=== PATIENT | female | born 1935 | race Caucasian/White ===

== ENCOUNTER 2018-10-10 07:39 | Day surgery (SDC) | payer MEDICARE ==
[2018-10-10] VITALS (11 sets, daily range): BP systolic 96–125; BP diastolic 48–73
[~2018-10-10] VITALS: Ht 157.5 cm; Wt 65.5 kg
[2018-10-10] MEDS ORDERED: LIDOcaine 1% (10mg/ml)w/preservative injection 20ml MDV ONE (07:43)
[2018-10-10] MEDS ORDERED: fentaNYL/PF 50MCG/1 ML 2ML syringe ONE (07:43)
[2018-10-10] MEDS ORDERED: iohexol 350 MG/ML 50ML vial IV ONE (07:43)
[2018-10-10] MEDS ORDERED: iohexol 350MG/ML 100ml bottle IV ONE ×2 (07:43→09:36)
[2018-10-10] MEDS ORDERED: midazolam 2 mg/2 ml injection ONE ×3 (07:43→10:05)
[2018-10-10] MEDS ORDERED: normal saline 1,000 ML IV SCH (08:10)
[2018-10-10] MEDS ORDERED: diphenhydrAMINE 25mg capsule PO PRN (08:10)
[2018-10-10] MEDS ORDERED: ATOR80TA PO (08:11)
[2018-10-10] MEDS ORDERED: ATEN25TA PO (08:11)
[2018-10-10] MEDS ORDERED: MULT-1085 PO (08:11)
[2018-10-10] MEDS ORDERED: CLOP75TA15 PO (08:11)
[2018-10-10] MEDS ORDERED: vitamin D (08:11)
[2018-10-10 08:34] LABS: BASOPHILS # (AUTO) 0.1 X10'3 (0-0.2); BASOPHILS % (AUTO) 0.9 % (0-1); EOSINOPHILS % (AUTO) 0.6 % (0-6); HEMATOCRIT 41.5 % (35.0-45.0); HEMOGLOBIN 14.1 g/dl (12.0-16.0); LYMPHOCYTES # (AUTO) 2.3 X10'3 (1.1-4.8); LYMPHOCYTES % (AUTO) 34.5 % (21-51); MEAN CORPUSCULAR HEMOGLOBIN 31.7 PG (27.0-31.0); MEAN CORPUSCULAR VOLUME 93.5 FL (78-98); MONOCYTES # (AUTO) 0.7 X10'3 (0-0.9); MONOCYTES % (AUTO) 9.7 % (2-12); NEUTROPHILS # (AUTO) 3.7 X10'3 (1.8-7.7); NEUTROPHILS % (AUTO) 54.3 % (42-75); PLATELET COUNT 154 X10'3 (140-440); RED BLOOD COUNT 4.44 X10'6 (4.20-5.60); RED CELL DISTRIBUTION WIDTH 12.8 % (11.5-14.5); WHITE BLOOD COUNT 6.8 X10'3 (4.5-11.0)
[2018-10-10 08:36] LABS: ALBUMIN 4.4 G/DL (3.4-5.0); ANION GAP 8 (8-16); BLOOD UREA NITROGEN 19 MG/DL (7-18); BUN/CREATININE RATIO 21.6 (6.6-38.0); CALCIUM 9.3 MG/DL (8.5-10.1); CHLORIDE 108 MMOL/L (99-107); CREATININE 0.88 MG/DL (0.40-0.90); GLUCOSE 106 MG/DL (70-104); SODIUM 143 MMOL/L (135-145); TOTAL CARBON DIOXIDE 27.4 MMOL/L (24-32); eGFR 62 ML/MIN
[2018-10-10 08:39] LABS: POTASSIUM 4.2 MMOL/L (3.5-5.1)
[2018-10-10 08:40] LABS: INR 1.1 INR; PROTHROMBIN TIME 11.1 SECONDS (9.0-12.0)
[2018-10-10] MEDS ORDERED: heparin 1,000unit/ml 10ml vial 10 ML ONE (09:36)
[2018-10-10] MEDS ORDERED: clopidogrel 300mg tablet ONE (10:23)
== END 2018-10-10 14:50 | disposition home or self-care (01) ==
LOC: SSTAY O 07:39
PROVIDERS: ATTEND Internal Medicine Cardiovascular Disease
DX: I25.10 Atherosclerotic heart disease of native coronary artery without angina pectoris (principal); I27.20 Pulmonary hypertension, unspecified; E78.5 Hyperlipidemia, unspecified; I10 Essential (primary) hypertension
CPT/HCPCS: 36415; 80048; 83735; 85025; 85610; 93460; 99152; 99153; A6257; C1874; C9600; J1644; J2001; J2250; J3010; J7030; Q0163; Q9967; A4620; C1760; C1769; C1894; C9601

== ENCOUNTER 2019-12-09 09:53 | Day surgery (SDC) | payer MEDICARE ==
[~2019-12-09] VITALS: Ht 157.5 cm; Wt 64.8 kg
[2019-12-09] VITALS (9 sets, daily range): BP systolic 130–145; BP diastolic 65–91
[~2019-12-09 09:53] MED LIST: ATEN25TA PO; ATOR80TA PO; CLOP75TA15 PO; MULT-1085 PO; vitamin D
[2019-12-09] MEDS ORDERED: normal saline 1,000 ML IV SCH (10:10)
[2019-12-09] MEDS ORDERED: diphenhydrAMINE 25mg capsule PO PRN (10:10)
[2019-12-09] MEDS ORDERED: iohexol 350MG/ML 100ml bottle IV ONE (11:07)
[2019-12-09] MEDS ORDERED: fentaNYL/PF 50MCG/1 ML 2ML syringe ONE (11:07)
[2019-12-09] MEDS ORDERED: iohexol 350 MG/ML 50ML vial IV ONE (11:07)
[2019-12-09] MEDS ORDERED: heparin 1,000unit/ml 10ml vial 10 ML ONE (11:07)
[2019-12-09] MEDS ORDERED: LIDOcaine 1% (10mg/ml)w/preservative injection 20ml MDV ONE (11:07)
[2019-12-09] MEDS ORDERED: midazolam 2 mg/2 ml injection ONE (11:07)
[2019-12-09 11:12] LABS: BASOPHILS % (AUTO) 0.6 % (0-1); EOSINOPHILS # (AUTO) 0.1 X10'3 (0-0.9); HEMATOCRIT 39.6 % (35.0-45.0); HEMOGLOBIN 13.2 g/dl (12.0-16.0); LYMPHOCYTES # (AUTO) 2.2 X10'3 (1.1-4.8); LYMPHOCYTES % (AUTO) 36.9 % (21-51); MEAN CORPUSCULAR HEMOGLOBIN 31.5 PG (27.0-31.0); MEAN CORPUSCULAR HGB CONC 33.4 g/dL (33.0-36.5); MEAN CORPUSCULAR VOLUME 94.4 FL (78-98); MEAN PLATELET VOLUME 7.1 FL (7.4-10.4); MONOCYTES # (AUTO) 0.6 X10'3 (0-0.9); MONOCYTES % (AUTO) 10.3 % (2-12); NEUTROPHILS % (AUTO) 51.2 % (42-75); PLATELET COUNT 166 X10'3 (140-440); RED BLOOD COUNT 4.19 X10'6 (4.20-5.60); RED CELL DISTRIBUTION WIDTH 13.1 % (11.5-14.5); WHITE BLOOD COUNT 5.9 X10'3 (4.5-11.0)
[2019-12-09 11:17] LABS: ALBUMIN 4.2 G/DL (3.4-5.0); ANION GAP 8 (8-16); BLOOD UREA NITROGEN 17 MG/DL (7-18); BUN/CREATININE RATIO 17.9 (6.6-38.0); CALCIUM 9.2 MG/DL (8.5-10.1); CHLORIDE 111 MMOL/L (99-107); CREATININE 0.95 MG/DL (0.40-0.90); GLUCOSE 101 MG/DL (70-104); MAGNESIUM 2.2 MG/DL (1.5-2.4); POTASSIUM 3.7 MMOL/L (3.5-5.1); SODIUM 147 MMOL/L (135-145); TOTAL CARBON DIOXIDE 27.7 MMOL/L (24-32); eGFR 56 ML/MIN
[2019-12-09] MEDS ORDERED: ondansetron/PF 4mg/2ml inj IV PRN (12:30)
[2019-12-09] MEDS ORDERED: HYDROcodone/acetaminophen 5mg/325mg tablet PO PRN (12:30)
[2019-12-09] MEDS ORDERED: proCHLORperazine 10 MG/2 ml inj IV PRN (12:35)
[2019-12-09] MEDS ORDERED: HYDROcodone/acetaminophen 10/325mg tab PO PRN (12:35)
== END 2019-12-09 15:30 | disposition home or self-care (01) ==
LOC: SSTAY O 09:53
PROVIDERS: ATTEND Internal Medicine Cardiovascular Disease
DX: R94.39 Abnormal result of other cardiovascular function study (principal); I25.118 Atherosclerotic heart disease of native coronary artery with other forms of angina pectoris; I10 Essential (primary) hypertension; E78.5 Hyperlipidemia, unspecified; M81.0 Age-related osteoporosis without current pathological fracture; Z87.891 Personal history of nicotine dependence; Z95.5 Presence of coronary angioplasty implant and graft; Z90.710 Acquired absence of both cervix and uterus; Z98.890 Other specified postprocedural states; Z79.01 Long term (current) use of anticoagulants; Z79.899 Other long term (current) drug therapy
CPT/HCPCS: 36415; 80048; 83735; 85025; 85610; 93005; 93460; 99152; 99153; C1769; C1894; J1644; J2001; J2250; J3010; Q0163; Q9967; A4620; A6258; C1760

== ENCOUNTER → 2024-04-28 | Emergency (ER) | payer MEDICARE ==
[~2024-04-28] VITALS: Ht 157.5 cm; Wt 55.0 kg
[~2024-04-28] MED LIST changes: +NITR1PAT25 TD
[2024-04-28 14:51] LABS: BASOPHILS % (AUTO) 0.6 % (0-1); EOSINOPHILS # (AUTO) 0.1 X10'3 (0-0.9); EOSINOPHILS % (AUTO) 1.2 % (0-6); HEMATOCRIT 42.5 % (35.0-45.0); HEMOGLOBIN 14.2 g/dl (12.0-16.0); LYMPHOCYTES # (AUTO) 1.5 X10'3 (1.1-4.8); LYMPHOCYTES % (AUTO) 19.3 % (21-51); MEAN CORPUSCULAR HEMOGLOBIN 32.3 PG (27.0-31.0); MEAN CORPUSCULAR HGB CONC 33.4 g/dL (33.0-36.5); MEAN CORPUSCULAR VOLUME 96.6 FL (78-98); MEAN PLATELET VOLUME 7.7 FL (7.4-10.4); MONOCYTES % (AUTO) 12.8 % (2-12); NEUTROPHILS # (AUTO) 5.1 X10'3 (1.8-7.7); NEUTROPHILS % (AUTO) 66.1 % (42-75); PLATELET COUNT 167 X10'3 (140-440); RED CELL DISTRIBUTION WIDTH 13.6 % (11.5-14.5); WHITE BLOOD COUNT 7.7 X10'3 (4.5-11.0)
[2024-04-28 15:04] LABS: ALANINE AMINOTRANSFERASE 39 U/L (12-78); ALBUMIN 3.7 G/DL (3.4-5.0); ALBUMIN/GLOBULIN RATIO 1.2 (1.1-1.5); ALKALINE PHOSPHATASE 109 IU/L (46-116); ANION GAP 6 (8-16); ASPARTATE AMINO TRANSFERASE 36 U/L (10-37); BILIRUBIN,TOTAL 0.7 MG/DL (0.1-1.0); BLOOD UREA NITROGEN 25 MG/DL (7-18); CALCIUM 9.1 MG/DL (8.5-10.1); CHLORIDE 104 MMOL/L (99-107); GLUCOSE 147 MG/DL (70-104); POTASSIUM 4.2 MMOL/L (3.5-5.1); SODIUM 140 MMOL/L (135-145); TOTAL CARBON DIOXIDE 29.8 MMOL/L (24-32); TOTAL PROTEIN 6.7 G/DL (6.4-8.2); eCRCL 31 ML/MIN; eGFR 52 ML/MIN
[2024-04-28 15:12] LABS: PRO BRAIN NATRIURETIC PEPTIDE 3020 PG/ML (0-450)
[2024-04-28 17:28] VITALS: BP 122/82; PULSE 85; RESP 19; TEMP 98.9; O2SAT 99
== END | disposition home or self-care (01) ==
LOC: ER 14:25
DX: I95.9 Hypotension, unspecified (principal); Z88.0 Allergy status to penicillin; Z88.2 Allergy status to sulfonamides; Z79.899 Other long term (current) drug therapy; Z95.2 Presence of prosthetic heart valve
CPT/HCPCS: 36415; 71045; 80053; 83880; 84484; 85025; 93005; 99285

== ENCOUNTER 2024-10-09 07:22 | Emergency (ER) | payer MEDICARE ==
[~2024-10-09] VITALS: Ht 157.5 cm; Wt 59.6 kg
[~2024-10-09 07:22] MED LIST changes: +ATOR-429 PO; -ATOR80TA PO; +CEPH-585 PO; -NITR1PAT25 TD
[2024-10-09 08:00] LABS: BASOPHILS % (AUTO) 0.6 % (0-1); EOSINOPHILS # (AUTO) 0.1 X10'3 (0-0.9); EOSINOPHILS % (AUTO) 1.7 % (0-6); HEMATOCRIT 42.8 % (35.0-45.0); HEMOGLOBIN 14.2 g/dl (12.0-16.0); LYMPHOCYTES # (AUTO) 1.6 X10'3 (1.1-4.8); LYMPHOCYTES % (AUTO) 30.8 % (21-51); MEAN CORPUSCULAR HEMOGLOBIN 30.8 PG (27.0-31.0); MEAN CORPUSCULAR HGB CONC 33.3 g/dL (33.0-36.5); MEAN CORPUSCULAR VOLUME 92.6 FL (78-98); MEAN PLATELET VOLUME 7.8 FL (7.4-10.4); MONOCYTES # (AUTO) 0.7 X10'3 (0-0.9); MONOCYTES % (AUTO) 12.9 % (2-12); NEUTROPHILS # (AUTO) 2.8 X10'3 (1.8-7.7); PLATELET COUNT 126 X10'3 (140-440); RED BLOOD COUNT 4.62 X10'6 (4.20-5.60); RED CELL DISTRIBUTION WIDTH 14.3 % (11.5-14.5); WHITE BLOOD COUNT 5.2 X10'3 (4.5-11.0)
[2024-10-09 08:26] LABS: ALANINE AMINOTRANSFERASE 51 U/L (12-78); ALBUMIN/GLOBULIN RATIO 1.5 (1.1-1.5); ALKALINE PHOSPHATASE 83 IU/L (46-116); ANION GAP 9 (8-16); ASPARTATE AMINO TRANSFERASE 37 U/L (10-37); BILIRUBIN,TOTAL 0.6 MG/DL (0.1-1.0); BLOOD UREA NITROGEN 20 MG/DL (7-18); CHLORIDE 104 MMOL/L (99-107); CREATININE 0.74 MG/DL (0.40-0.90); GLUCOSE 113 MG/DL (70-104); POTASSIUM 3.6 MMOL/L (3.5-5.1); PRO BRAIN NATRIURETIC PEPTIDE 212 PG/ML (0-450); SODIUM 142 MMOL/L (135-145); TOTAL CARBON DIOXIDE 29.2 MMOL/L (24-32); TOTAL PROTEIN 6.6 G/DL (6.4-8.2); eCRCL 42 ML/MIN; eGFR 74 ML/MIN
[2024-10-09 08:53] VITALS: TEMP 97.6
[2024-10-09] MEDS ORDERED: iohexol 300mg/ml 100ml inj. ONE (09:24)
[2024-10-09 11:07] LABS: BILIRUBIN,URINE NEGATIVE (Neg); CLARITY,URINE CLEAR (Clear); COLOR,URINE STRAW (Yellow); GLUCOSE, URINE NEGATIVE (Neg); KETONES,URINE NEGATIVE (Neg); LEUKOCYTE ESTERASE ,URINE NEGATIVE (Neg); NITRITES, URINE NEGATIVE (Neg); OCCULT BLOOD,URINE NEGATIVE (Neg); PROTEIN,URINE NEGATIVE (Neg); UROBILINOGEN,URINE 0.2 E.U/dL (0.2-1.0)
[2024-10-09 11:09] LABS: UA COLLECTION TYPE CLN CATCH MIDSTREAM
[2024-10-09] MEDS ORDERED: CEFD300C3 PO (12:43)
[2024-10-09] MEDS ORDERED: METR-159 PO (12:43)
[2024-10-09 13:22] VITALS: BP 151/72; PULSE 84; RESP 16; O2SAT 99
== END 2024-10-09 13:26 | disposition home or self-care (01) ==
LOC: ER 07:23
DX: R10.31 Right lower quadrant pain (principal); I25.10 Atherosclerotic heart disease of native coronary artery without angina pectoris; Z88.0 Allergy status to penicillin; Z88.2 Allergy status to sulfonamides; Z88.6 Allergy status to analgesic agent; Z95.5 Presence of coronary angioplasty implant and graft
CPT/HCPCS: 36415; 71045; 74177; 80053; 81003; 83690; 83880; 84484; 85025; 93005; 99285; Q9967

== ENCOUNTER 2024-11-05 00:26 | Inpatient (IN) | payer MEDICARE ==
[~2024-11-05] VITALS: Ht 157.5 cm; Wt 63.0 kg
[2024-11-05] VITALS (15 sets, daily range): BP systolic 90–156; BP diastolic 50–90; PULSE 52–101; RESP 12–22; TEMP 97.1–98.2; O2SAT 86–100
--- NOTE | 2024-11-05 00:42 | Physician Documentation ---
History of Present Illness ~ Chief Complaint: Chest Pain Stated Complaint: CHEST PAIN Time Seen by MD: 00:39 Primary Medical Doctor: ALISSON NEELY - GP HPI Patient presents to the emergency room for evaluation of chest pain which woke her up out of sleep. Patient was describes the pain as severe. Relieved with nitroglycerin. No prior instances. No current symptoms. Patient was had prior TAVR. Medication Reconciliation Allergies: Coded Allergies: Penicillins (Unverified Allergy, Unknown, 10/09/24) Sulfa (Sulfonamide Antibiotics) (Unverified Allergy, Unknown, 10/09/24) aspirin (Unverified Allergy, Unknown, 10/09/24) Scheduled Atenolol (Atenolol), 1 TABLET PO DAILY, (Reported) Atorvastatin Calcium* (Lipitor*), 1 TABLET PO HS, (Reported) Cephalexin*Monohydrate* (Keflex*), 1 CAP PO QID Clopidogrel Bisulfate (Plavix), 75 MG PO DAILY, (Reported) Multivitamin (Multi Vitamin Daily), 1 EACH PO DAILY, (Reported) Miscellaneous Medications [vitamin D], (Reported) Past Medical History Past Medical History: *CARDIOVASCULAR*, Heart Valve Disease Past Surgical History: heart valve surgery Drug Use: none Lives In: Home Review of Systems ROS All review of systems negative except as per HPI Physical Exam Vital Signs: Temperature: 98.6, Source: Oral, Heart Rate: 62, Respiratory Rate: 15, BP: 117/66, Pulse Oximetry: 96, Weight: 63.000 Oxygen Flow Rate: 0 Physical Exam General: Patient is awake, alert, oriented x4 in no acute distress Head: Normocephalic and atraumatic. Eyes: Conjunctival normal. EOMI. PERRL. ENT: Mucous membranes moist. Neck: Supple, trachea is midline. Chest: Clear to auscultation bilaterally without rales, rhonchi, or wheezes. There is no accessory muscle use or retractions. Cardiac: RRR without murmurs, gallops, or rubs. Abd: Soft, nondistended, nontender, with normoactive bowel sounds. No guarding, rebound, or rigidity. Progress Results/Orders Results/Orders Orders - BELTRAN GALLEGOS MD Monitor (11/05/24 00:33) Saline Lock (11/05/24 00:33) Oxygen (11/05/24 00:33) Electrocardiogram (11/05/24 00:33) Hs Troponin I W Calculations (11/05/24 03:33) Chest,Single View (11/05/24 00:57) Electrocardiogram (11/05/24 00:36) Page Hospitalist (11/05/24 02:37) Fill Out Med Reconciliation (11/05/24 02:37) Completed Orders - BELTRAN GALLEGOS MD Cbc/Diff (11/05/24 00:33) PBNP (11/05/24 00:33) CMP (11/05/24 00:33) Hs Troponin I W Calculations (11/05/24 00:33) Hs Troponin I W Calculations (11/05/24 02:33) Chest,Single View (11/05/24 00:57) Vital Signs 11/05/24 11/05/24 11/05/24 11/05/24 00:28 00:45 00:47 01:51 Temp 98.6 98.6 98.6 Pulse 62 63 62 Resp 15 17 20 15 B/P (MAP) 117/66 117/66 (83) 119/72 (88) Pulse Ox 96 95 96 O2 Flow Rate 0 0 0 Laboratory Tests Test 11/05/24 00:44 11/05/24 02:23 White Blood Count 5.6 Red Blood Count 4.22 Hemoglobin 13.3 Hematocrit 39.0 Mean Corpuscular Volume 92.6 Mean Corpuscular Hemoglobin 31.5 H Mean Corpuscular Hemoglobin Concent 34.0 Red Cell Distribution Width 13.6 Platelet Count 115 L Mean Platelet Volume 7.9 Neutrophils (%) (Auto) 52.5 Lymphocytes (%) (Auto) 32.4 Monocytes (%) (Auto) 12.4 H Eosinophils (%) (Auto) 2.0 Basophils (%) (Auto) 0.7 Neutrophils # (Auto) 3.0 Lymphocytes # (Auto) 1.8 Monocytes # (Auto) 0.7 Eosinophils # (Auto) 0.1 Basophils # (Auto) 0.0 CBC Comment Sodium Level 146 H Potassium Level 3.8 Chloride Level 111 H Carbon Dioxide Level 26.2 Anion Gap 9 Blood Urea Nitrogen 21 H Creatinine 0.81 Estimated GFR/1.73 m2 67 BUN/Creatinine Ratio 25.9 H Glucose Level 106 H Calcium Level 8.6 Total Bilirubin 0.4 Aspartate Amino Transf (AST/SGOT) 28 Alanine Aminotransferase (ALT/SGPT) 30 Alkaline Phosphatase 75 Troponin I High Sensitivity 9 9 Pro-B-Type Natriuretic Peptide 200 Total Protein 6.0 L Albumin 3.6 Globulin 2.4 L Albumin/Globulin Ratio 1.5 Chemistry Comments Troponin I High Sens Percent Delta 0 Troponin I Hi Sens Absolute Change 0 EKG/XRAY/CT/US/VASC/MRI EKG : Additional Comment EKG interpreted by myself shows time of 0031, rate 67, sinus rhythm, borderline left axis deviation, no ST changes Chest X-Ray : Additional Comments Exam: CHEST,SINGLE VIEW Clinical History CP Comparison CXR on 10/09/2024, 2 images. Technique: frontal chest x-ray Without Contrast BRIGHT MAE, [id number] Findings: Heart - normal lungs - no consolidation. bones - no acute fracture. Other- Impression: 1. No acute cardiopulmonary disease Medical Decision Making Findings Patient presents to the emergency room with chest pain as per HPI. Differentials include but are not limited to ACS, pulmonary embolism, pneumotho rax, musculoskeletal pain, reflux therefore emergent labs and imaging indicated. Patient was currently asymptomatic and he had not feel she was suffering from pulmonary embolism or acute aortic pathology. Patient was an elevated heart score of six and we will admit for further investigation. Departure Admitted to Inpatient Unit: yes, to hospitalist Impression: Primary Impression: Chest pain Condition: Guarded Referrals: NO PRIMARY CARE PROVIDER (PCP) Signature Scribe Signature: No scribe Attestation: The note accurately reflects work and decisions made by me.Beltran Gallegos MD 11/05/24 03:58 BELTRAN GALLEGOS MD November 05, 2024 00:42
[2024-11-05 01:04] LABS: BASOPHILS % (AUTO) 0.7 % (0-1); EOSINOPHILS # (AUTO) 0.1 X10'3 (0-0.9); HEMOGLOBIN 13.3 g/dl (12.0-16.0); LYMPHOCYTES # (AUTO) 1.8 X10'3 (1.1-4.8); LYMPHOCYTES % (AUTO) 32.4 % (21-51); MEAN CORPUSCULAR HEMOGLOBIN 31.5 PG (27.0-31.0); MEAN CORPUSCULAR VOLUME 92.6 FL (78-98); MEAN PLATELET VOLUME 7.9 FL (7.4-10.4); MONOCYTES # (AUTO) 0.7 X10'3 (0-0.9); MONOCYTES % (AUTO) 12.4 % (2-12); NEUTROPHILS % (AUTO) 52.5 % (42-75); PLATELET COUNT 115 X10'3 (140-440); RED BLOOD COUNT 4.22 X10'6 (4.20-5.60); RED CELL DISTRIBUTION WIDTH 13.6 % (11.5-14.5); WHITE BLOOD COUNT 5.6 X10'3 (4.5-11.0)
--- NOTE | 2024-11-05 01:04 | RADIOLOGY REPORT ---
Clinical History CP Comparison CXR on 10/09/2024, 2 images. Technique: frontal chest x-ray Without Contrast BRIGHT MAE, [id number] Findings: Heart - normal lungs - no consolidation. bones - no acute fracture. Other- Impression: 1. No acute cardiopulmonary disease This report was electronically signed by Ebony Hector MD on 11/05/2024 1:02:08 AM.
[2024-11-05 01:18] LABS: ALANINE AMINOTRANSFERASE 30 U/L (12-78); ALBUMIN 3.6 G/DL (3.4-5.0); ALBUMIN/GLOBULIN RATIO 1.5 (1.1-1.5); ALKALINE PHOSPHATASE 75 IU/L (46-116); ANION GAP 9 (8-16); ASPARTATE AMINO TRANSFERASE 28 U/L (10-37); BILIRUBIN,TOTAL 0.4 MG/DL (0.1-1.0); BLOOD UREA NITROGEN 21 MG/DL (7-18); BUN/CREATININE RATIO 25.9 (10.0-20.0); CALCIUM 8.6 MG/DL (8.5-10.1); CHLORIDE 111 MMOL/L (99-107); CREATININE 0.81 MG/DL (0.40-0.90); GLUCOSE 106 MG/DL (70-104); POTASSIUM 3.8 MMOL/L (3.5-5.1); SODIUM 146 MMOL/L (135-145); TOTAL CARBON DIOXIDE 26.2 MMOL/L (24-32); eCRCL 38 ML/MIN; eGFR 67 ML/MIN
[2024-11-05 01:25] LABS: PRO BRAIN NATRIURETIC PEPTIDE 200 PG/ML (0-450)
[2024-11-05] MEDS ORDERED: ondansetron/PF 4mg/2ml inj IV PRN (03:40)
[2024-11-05] MEDS ORDERED: acetaminophen 325mg tablet PO PRN (03:40)
[2024-11-05] MEDS ORDERED: magnesium hydroxide 30ml (MOM) UD suspension PO PRN (03:40)
[2024-11-05] MEDS ORDERED: potassium Cl 20 mEq SR tablet PO PRN ×2 (03:40)
[2024-11-05] MEDS ORDERED: magnesium sulf-water 4G/100mL 100 ML IV PRN (03:40)
[2024-11-05] MEDS ORDERED: morphine 2 MG/ML inj. syringe IV PRN ×2 (03:40)
[2024-11-05] MEDS ORDERED: magnesium sulf-water 2g/50mL 50 ML IV PRN (03:40)
[2024-11-05] MEDS ORDERED: potassium Cl 40MEQ/1/2NS 520ml 520 ML IV PRN (03:40)
[2024-11-05] MEDS ORDERED: magnesium Cl slow-release 64mg tablet PO PRN (03:40)
[2024-11-05] MEDS ORDERED: mag hydrox/Alum hydrox/simeth 30ml oral suspension PO PRN (03:40)
[2024-11-05] MEDS: normal saline 1000ml 1,000 ML IV SCH (03:57)
--- NOTE | 2024-11-05 03:57 | HISTORY AND PHYSICAL-Residence ---
History & Physical Providers to CC Resident Creating Document: RANCHO DELGADO, RES ~ History of Present Illness Primary Medical Doctor: Dr. Nash Reason for Admit\Complaint: Chest pain History of Present Illness PCP: Dr. Nash. 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 Yo 89-year-old female patient with past medical history of ACS S/P stent, dyslipidemia, s/p TAVR, AFib, came to the hospital with chief complaint of chest pain. The patient endorses that approximately at 11:30 p.m. while she was sleeping she felt severe chest pain described as chest pressure, 9/10 in intensity, without radiation which prompted her to wake up. At that time the patient decided to take nitroglycerin which she had at home and the patient's subsided, while the patient was having this chest pain she also endorsed mild shortness of breath. The patient currently denies any chest pain, nausea, shortness of breath, palpitations, intestinal or urinary symptoms. Allergies: Coded Allergies: Penicillins (Unverified Allergy, Unknown, 10/09/24) Sulfa (Sulfonamide Antibiotics) (Unverified Allergy, Unknown, 10/09/24) aspirin (Unverified Allergy, Unknown, 10/09/24) Home Medications Home Medications Active Keflex* (Cephalexin HCl) 500 Mg Capsule 1 Cap PO QID Reported [vitamin D] Multi Vitamin Daily (Multivitamin) 1 Each Tablet 1 Each PO DAILY Plavix (Clopidogrel Bisulfate) 75 Mg Tablet 75 Mg PO DAILY Do not stop medication unless instructed by prescriber. Atenolol 25 Mg Tablet 1 Tablet PO DAILY Lipitor* (Atorvastatin Calcium) 80 Mg Tablet 1 Tablet PO HS Past Medical History Past Medical History Dyslipidemia. ACS s/p stents, one in 2019, 2nd stents seven months ago. AFib currently on warfarin the patient has plans for watchman procedure. Aortic stenosis s/p TAVR seven months ago. Past Surgical History Surgical History Comment Left knee replacement. Hysterectomy. Appendectomy. Tonsillectomy. Past Social History Smoking: Non-Smoker Alcohol Use: None Drug Use: None Lives with: Alone Lives In: Home Occupation: retired ROS All Other Systems: Reviewed and Negative Exam Vitals: Vital Signs Date Time Temp Pulse Resp B/P (MAP) Pulse Ox O2 Delivery O2 Flow Rate FiO2 11/05/24 01:51 98.6 62 15 119/72 (88) 96 0 Physical exam: General: Well alert, well oriented, not confused, not agitated, not in acute distress, well cooperated during the physical. HEENT: Conjunctive are pink, sclerae clear, no icterus, pupil is equal in both sides, reactive to light, no ear discharge, no pharyngeal erythema or an edema. Neck: Supple, no JVD, no lymphadenopathy and thyromegaly. Chest: Equal air entry on both lungs, no additional sounds no rhonchi no wheezing at the moment. Cardiovascular: S1-S2 regular sinus rhythm and, regular rate, no gallops, no rubs, no murmurs Abdomen: No visible peristalsis, Bowel sounds present on auscultation, soft, nontender, no guarding, no rigidity Extremities: No obvious deformities, no pitting edema bilaterally, capillary refill intact, diminished pulsations in the left face, presence of dermatitis stasis changes bilateral lower extremities. Central Nervous System: No focal neurological deficits, no motor or sensory weakness in all 4 extremities, could move all 4 extremities, 2+ deep tendon reflexes, negative Babinski. Musculoskeletal: No joint swelling, deformities, inflammations, and no scoliosis and back tenderness Skin: Presence of scar in the left knee from previous surgery. Diagnostic Data Last Recorded Lab Results: 11/05/244311/05/2443 Advance Care Planning Advanced Care plannin - 30 Minutes (I spent a total of 17 minutes on reviewing various resuscitative measures/ACP with the patient at the time of admission. The patient has decided on DNR code status.) Additional Plan Assessment and plan: 89-year-old female patient came to the hospital with chief complaint of chest pain. Chest pain: Heart score: 6: Possible unstable angina: The patient came to the hospital with chief complaint of chest pain, pressure type while the patient was sleeping. Subsided with nitroglycerin. EKG without ST elevation. Troponin levels within reference range. Follow-up echocardiogram. Follow-up lipid panel. Atorvastatin 80 mg daily. Clopidogrel 75 mg daily. Nitroglycerin 0.4 mg p.r.n. Cardiology consult in a.m. AFib rate controlled: The patient was on Coumadin. Follow-up PT, INR. We will hold Coumadin. Hypothyroidism: TSH 5.45. Levothyroxine 25 mcg daily. Dyslipidemia: Follow-up lipid panel. Currently on atorvastatin 80 mg daily. Glaucoma: We will continue latanoprost. Code status: DNR DVT prophylaxis: SCDs Analgesia/sedation: Morphine Line/tube: PIV GI prophylaxis: None Nutrition: NPO PT: Ordered Prognosis: Guarded Disposition: The patient will be admitted to PCU with telemetry. [place] Dumont Internal Medicine Resident [facility] Date of Service: November 05, 2024 Billing Provider: BAUDILIO WHATLEY MD,RANCHO GRAVES, RES November 05, 2024 03:57
[2024-11-05] MEDS ORDERED: XAL0.005OS RIGHTEYE (04:11)
[2024-11-05] MEDS ORDERED: WARF2.5T82 PO (04:11)
[2024-11-05] MEDS ORDERED: XAL0.005OS LEFTEYE (04:11)
[2024-11-05] MEDS ORDERED: ATOR40TA PO (04:11)
[2024-11-05] MEDS ORDERED: nitroGLYCERIN 0.4mg SUBLingual tab SL PRN ×3 (04:15→13:45)
[2024-11-05 04:46] LABS: CHOL/HDL RATIO 2.1 (0.00-4.99); CHOLESTEROL 116 MG/DL (0-200); HDL CHOLESTEROL 54 MG/DL (35-60); LDL CHOLESTEROL 53 MG/DL (50-100); THYROID STIMULATING HORMONE 5.45 ulU/ml (0.34-4.50); TRIGLYCERIDES 94 MG/DL (20-135)
[2024-11-05 04:58] LABS: APTT 27 SECONDS (22-32); D-DIMER 0.62 MG/L FEU (0-0.50); INR 1.3 INR; PROTHROMBIN TIME 13.3 SECONDS (9.0-12.0)
[2024-11-05] MEDS ORDERED: iohexol 350MG/ML 100ml bottle IV ONE (05:13)
[2024-11-05] MEDS: normal saline 500ml IV soln 500 ML IV ONE (05:34)
--- NOTE | 2024-11-05 06:22 | ELECTROCARDIOGRAPH REPORT ---
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 Miquel Villarreal Measurements Intervals [place] Rate: 67 P: 249 NE: 209 QRS: -24 QRSD: 94 T: 57 QT: 431 QTc: 455 Interpretive Statements Sinus or ectopic atrial rhythm Borderline left axis deviation Anterior infarct, old Electronically Signed On 11-06-2024 15:45:[address] Miquel Villarreal Please click the below link to view image of tracing.
[2024-11-05 06:59] LABS: FREE T4 (FREE THYROXINE) 0.6 NG/DL (0.73-1.40); MAGNESIUM 2.2 MG/DL (1.5-2.4); POTASSIUM 3.9 MMOL/L (3.5-5.1)
[2024-11-05] MEDS ORDERED: aminophylline 500mg/20ml vial IV PRN (07:40)
[2024-11-05] MEDS ORDERED: metoprolol tartrate 1mg/ml inj IV PRN ×2 (07:40→13:45)
[2024-11-05] MEDS: K and/or MAG REPLACEMENT MC SCH (08:00)
[2024-11-05] MEDS ORDERED: aspirin 81mg, enteric-coated 1 TAB TABLET.DR PO SCH (08:00)
[2024-11-05] MEDS: carVEDilol 3.125mg tablet PO SCH (08:01)
[2024-11-05] MEDS: levoTHYROXINE 25mcg tablet PO SCH (08:01)
[2024-11-05] MEDS: clopidogrel 75mg tablet PO SCH (08:02)
[2024-11-05] MEDS: atorvastatin 20mg tablet PO SCH (08:02)
[2024-11-05] MEDS: docusate sod 100mg capsule PO SCH (08:02)
[2024-11-05] MEDS: regadenoson 0.4mg/5ml syringe IV PRN (09:19)
--- NOTE | 2024-11-05 09:30 | RADIOLOGY REPORT ---
CTA Chest with intravenous contrast INDICATION: chest pain, elevated d dimer COMPARISON: None TECHNIQUE: Multidetector spiral CTA of the chest was performed of the chest with intravenous contrast . PULMONARY ANGIOGRAPHY PROTOCOL was utilized using a bolus-tracking technique centered on the main p ulmonary artery. Axial, coronal and sagittal multiplanar and MIP reformats were performed. Radiation Dose : 1. Chest: CTDI volume is 8.1 mGy. Dose-length product is 278 mGy*cm The dose indicators for CT are the volume Computed Tomography (CT) Dose Index (CTDIvol) and the Dose Length Product (DLP), and are measured in units of mGy and mGy-cm, respectively. These indicators are not patient dose, but values generated from the CT scanner acquisition factors. The report includes radiation exposure data for exposures received during this examination. Findings: Pulmonary artery: No pulmonary embolism Lower neck: Normal thyroid. Lungs: No focal consolidation, pleural effusion or pneumothorax. Dependent subsegmental atelectasis o r scarring. Heart/Vascular Structures: Cardiomegaly. Coronary artery calcifications. Vascular calcifications of t he aorta. Lymph Nodes: No adenopathy Pleura: No pleural effusion or significant pneumothorax. Musculoskeletal: No acute osseous abnormality. Soft tissues: Normal. Upper abdomen: Limited portions of the upper abdomen are unremarkable. IMPRESSION: No pulmonary embolism. Cardiomegaly.
--- NOTE | 2024-11-05 13:05 | RADIOLOGY REPORT ---
EXAM: NM NM KALYANI SCAN History: Unstable angina, ACS and Stents x 2, [place] 6 Comparison Study: None TECHNIQUE: Resting myocardial perfusion imaging was performed approximately 30 minutes following the injection of 8.36 mCi of Tc-99m sestamibi. Peak pharmacologic stress, the patient was injected with 3 4.04 mCi of Tc-99m sestamibi. Gated post stress images were acquired in the supine and prone position s approximately 30 minutes after stress and left ventricular ejection fraction (LVEF) was calculated. Findings: The overall quality of the study is adequate. The left ventricular cavity is noted to be normal. There is no evidence of abnormal lung activity. Additionally, the right ventricle appears normal. Myocardial perfusion images demonstrate homogeneous tracer distribution throughout the myocardium wit h no scintigraphic evidence of myocardial ischemia or necrosis/scar. Gated imaging reveals normal thickening and wall motion with a calculated LVEF of 78 % with end-diast olic volume of 44 mL at stress. Impression: 1. No evidence of ischemia or scar. 2. Overall gated left ventricular systolic function was normal with calculated LVEF of 78 % at stress . 3. No left ventricular dilatation.
[2024-11-05] MEDS ORDERED: aminophylline 250mg/10ml inj. IV PRN (13:45)
[2024-11-05] MEDS ORDERED: regadenoson 0.4mg/5ml syringe IV PRN (13:45)
[2024-11-05] MEDS: lisinopril 5mg tablet PO SCH (16:03)
--- NOTE | 2024-11-05 17:19 | CARDIOLOGY REPORT ---
APPROVED REPORT EXAM: Comprehensive 2D, Doppler, and color-flow Echocardiogram. Patient Location: 801 Heart Rate: 60 bpm Rhythm: NSR Indications CHEST PAIN ACUTE CORONARY SYNDROME WITH STENT UNKNOWN Perez? 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 2D Dimensions RVDd 3.9 cm IVSd 1.4 (0.7-1.1cm) LVDd 4.0 cm PWd 1.4 (0.7-1.1cm) IVSs 1.7 (0.8-1.2cm) LVDs 2.7 (2.5-4.0cm) PWs 1.5 (0.8-1.2cm) LVOT Diameter 2.30 (1.8-2.4cm) LVEF(%) 65.0 (>50%) FS (%) 33.0 % SV 42.2 ml CO 2.5 L/min M-Mode Dimensions Left Atrium(MM) 5.24 (2.5-4.0cm) Aortic Root 3.55 (2.2-3.7cm) Aortic Cusp Exc 1.28 (1.5-2.0cm) Aortic Valve AoV Peak Boo. 182.5 cm/s AoV VTI 38.1 cm AO Peak GR. 13.3 mmHg AO Mean GR. 6 mmHg LVOT VTI 17.70 cm LVOT Peak Boo. 84.7 cm/s JAMEEL(VTI)/BSA 2.26 cm2/m2 JAMEEL (VTI) 2.26 cm2 Mitral Valve MV E Velocity 91.9 cm/s MV Peak Gr. 4 mmHg MV DECEL TIME 200 ms MV A Velocity 75.6 cm/s MV PHT 48 ms E/A Ratio 1.2 MVA (PHT) 4.58 cm2 MR YHke932.3 cm/s MV VMax94.4 cm/sMR PG Zmr382.2 mmHg Pulmonary Valve PAEDP9.11 mmHg Tricuspid Valve TR P. Velocity 275 cm/s RAP ESTIMATE 5 mmHg TR Peak Gr. 30 mmHg RVSP 35 mmHg LEFT VENTRICLE Normal LV size and function. Moderate concentric hypertrophy. Overall LVEF is 65%. RIGHT VENTRICLE RV is normal size and function. RVSP 35 mmHg. ATRIA Left atrium is severly dilated. Right atrium is mildly dilated. AORTIC VALVE Trileaflet AV appears moderately sclerotic without stenosis. JAMEEL is measured at 2.26 cmsq. Peak / bobby n gradients of 13/6 mmHG. Peak velocity is measured at 1.82 m/sec. No insufficiency. MITRAL VALVE Mild MV annular calcification without stenosis. Moderate regurgitation. TRICUSPID VALVE TV appears structurally normal with mild r to moderate egurgitation. PULMONIC VALVE The pulmonary valve is normal in structure. Mild to Moderate pulmonic regurgitation. GREAT VESSELS Aortic root is mildly dilated. IVC is normal in size and collapses greater than 50% with inspiration. PERICARDIUM Normal pericardium. No effusion. Other Information Study Quality: Good Conclusion Overall LVEF is 65%. Normal LV size and function. Moderate concentric hypertrophy. RV is normal size and function. RVSP 35 mmHg. Trileaflet AV appears moderately sclerotic without stenosis. JAMEEL is measured at 2.26 cmsq. Peak / m vito gradients of 13/6 mmHG. Peak velocity is measured at 1.82 m/sec. No insufficiency. Mild MV annular calcification without stenosis. Moderate regurgitation. TV appears structurally normal with mild to moderate regurgitation. The pulmonary valve is normal in structure. Mild to Moderate pulmonic regurgitation. Normal pericardium. No effusion.
[2024-11-05 19:23] LABS: BILIRUBIN,URINE NEGATIVE (Neg); CLARITY,URINE CLEAR (Clear); COLOR,URINE YELLOW (Yellow); GLUCOSE, URINE NEGATIVE (Neg); KETONES,URINE NEGATIVE (Neg); LEUKOCYTE ESTERASE ,URINE NEGATIVE (Neg); NITRITES, URINE NEGATIVE (Neg); OCCULT BLOOD,URINE NEGATIVE (Neg); PH,URINE 6.5 (4.8-8.0); PROTEIN,URINE NEGATIVE (Neg); UROBILINOGEN,URINE 0.2 E.U/dL (0.2-1.0)
[2024-11-05 19:26] LABS: UA COLLECTION TYPE NON-SPECIFIED
[2024-11-05] MEDS: carvedilol 6.25mg tablet PO SCH (19:53)
[2024-11-05] MEDS: latanoprost 0.005% 2.5ml ophthalmic drops EACHEYE SCH (19:55)
[2024-11-05] MEDS ORDERED: latanoprost 0.005% 2.5ml ophthalmic drops RIGHTEYE SCH (21:00)
[2024-11-05] MEDS ORDERED: latanoprost 0.005% 2.5ml ophthalmic drops EACHEYE SCH (21:00)
[2024-11-06 02:00] VITALS: BP 85/50; PULSE 60; RESP 11; TEMP 97.7; O2SAT 96
[2024-11-06 06:00] VITALS: BP 98/55; PULSE 54; RESP 17; TEMP 98.2; O2SAT 95
[2024-11-06 06:05] LABS: BASOPHILS % (AUTO) 0.4 % (0-1); EOSINOPHILS # (AUTO) 0.1 X10'3 (0-0.9); EOSINOPHILS % (AUTO) 1.4 % (0-6); HEMATOCRIT 39.7 % (35.0-45.0); HEMOGLOBIN 13.3 g/dl (12.0-16.0); LYMPHOCYTES # (AUTO) 1.3 X10'3 (1.1-4.8); LYMPHOCYTES % (AUTO) 17.3 % (21-51); MEAN CORPUSCULAR HEMOGLOBIN 31.2 PG (27.0-31.0); MEAN CORPUSCULAR HGB CONC 33.6 g/dL (33.0-36.5); MEAN CORPUSCULAR VOLUME 92.8 FL (78-98); MONOCYTES # (AUTO) 0.7 X10'3 (0-0.9); MONOCYTES % (AUTO) 8.5 % (2-12); NEUTROPHILS # (AUTO) 5.6 X10'3 (1.8-7.7); NEUTROPHILS % (AUTO) 72.4 % (42-75); PLATELET COUNT 121 X10'3 (140-440); RED BLOOD COUNT 4.28 X10'6 (4.20-5.60); RED CELL DISTRIBUTION WIDTH 13.8 % (11.5-14.5); WHITE BLOOD COUNT 7.7 X10'3 (4.5-11.0)
[2024-11-06 06:23] LABS: ALANINE AMINOTRANSFERASE 31 U/L (12-78); ALBUMIN 3.3 G/DL (3.4-5.0); ALBUMIN/GLOBULIN RATIO 1.5 (1.1-1.5); ALKALINE PHOSPHATASE 72 IU/L (46-116); ANION GAP 8 (8-16); ASPARTATE AMINO TRANSFERASE 28 U/L (10-37); BILIRUBIN,TOTAL 0.6 MG/DL (0.1-1.0); BLOOD UREA NITROGEN 17 MG/DL (7-18); BUN/CREATININE RATIO 20.7 (10.0-20.0); CALCIUM 8.6 MG/DL (8.5-10.1); CHLORIDE 110 MMOL/L (99-107); CHOL/HDL RATIO 2.2 (0.00-4.99); CHOLESTEROL 108 MG/DL (0-200); CREATININE 0.82 MG/DL (0.40-0.90); GLUCOSE 96 MG/DL (70-104); HDL CHOLESTEROL 49 MG/DL (35-60); LDL CHOLESTEROL 48 MG/DL (50-100); MAGNESIUM 2.1 MG/DL (1.5-2.4); POTASSIUM 4.2 MMOL/L (3.5-5.1); SODIUM 145 MMOL/L (135-145); TOTAL CARBON DIOXIDE 26.6 MMOL/L (24-32); TOTAL PROTEIN 5.5 G/DL (6.4-8.2); TRIGLYCERIDES 56 MG/DL (20-135); eCRCL 38 ML/MIN; eGFR 66 ML/MIN
[2024-11-06 08:00] VITALS: RESP 17; O2SAT 97
[2024-11-06 10:51] VITALS: BP 100/54; PULSE 65; RESP 15; TEMP 97.5; O2SAT 96
--- NOTE | 2024-11-06 16:48 | DISCHARGE SUMMARY-Residence ---
Discharge Summary Providers to CC Resident Creating Document: ASTERDEVON GARIBAY ~ Discharge Summary Admission Diagnosis: CHEST PAIN Hospital Course DATE OF ADMISSION: 11/05/2024 DATE OF DISCHARGE: 11/06/2024 Discharge Diagnosis\Comment: # Non- cardiac chest pain, Ruled out ACS, and Acute PE # Afib w/ CVR on warfarin (INR 1.3) # History of hypothyroidism (TSH 5.45, free T4 0.6) # History of HLD # Chronic Bilateral angle closure galucoma Operations\Procedures: Nuclear medicine cardiac stress test Consultants: None Complications: None Condition on DC: Stable Continued Medications: Atorvastatin Calcium* (Lipitor*) 40 Mg Tablet 1 TAB PO DAILY for 30 Days, #30 TAB Clopidogrel Bisulfate (Plavix) 75 Mg Tablet 75 MG PO DAILY for ACUTE CORONARY SYNDROME/NSTEMI, TAB Do not stop medication unless instructed by prescriber. Latanoprost (XALATAN ophth drops) 0.005 % Bottle 1 DROP LEFTEYE HS for 30 Days, ML 0 Refills Latanoprost (XALATAN ophth drops) 0.005 % Bottle 1 DROP RIGHTEYE HS for 30 Days, ML 0 Refills Warfarin Sodium (Warfarin Sodium) 2.5 Mg Tablet 1 TAB PO HS for 30 Days, #30 TAB 0 Refills Discharge Summary: An 89 years old female with a past medical history of CAD and ACS s/p cardiac stents x 2( 2018 and 2024 seven months ago), s/p TAVR for aortic stenosis at seven months ago, AFib with CVR on warfarin, history of HLD, s/p left knee replacement surgery, hysterectomy, appendicectomy, tonsillectomy presented with central chest pain which woke her up over a night and was relieved with SL Nitroglycerin tab along with sudden acute shortness of breath. Hospital course: Patient was admitted to the hospital to rule out ACS in the setting of background history of CAD, ACS s/p cardiac stents S2, HLD, heart score six. Her EKG showed WNL without ST T changes. Serial troponin levels showed 9-9-9. She underwent nuclear medicine cardiac stress test on 11/05/2024 showed Impression: 1. No evidence of ischemia or scar. 2. Overall gated left ventricular systolic function was normal with calculated LVEF of 78 % at stress. 3. No left ventricular dilatation. Her possibility of acute PE was excluded out with CTA chest showing no pulmonary embolism only cardiomegaly. CXR show no acute cardiopulmonary disease. Her 2D echocardiogram on 11/05/2024 showed LVEF 65%, moderate concentric hypertrophy, RVSP 35 mm Hg, moderate MR, TR, OK with normal pericardium and no effusion. Her lipid profile on admission showed TG 56, total cholesterol 108, LDL 48, HDL 49, and TSH 5.45 with 0.6 free T4, HGB A1c on 11/05/2024 showed 6%. She was given p.o. carvedilol 3.125 mg b.i.d., p.o. atorvastatin 80 mg daily, clopidogrel 75 m g daily, p.o. levothyroxine 25 mcg daily with IV 0.9% sodium chloride 50 mL/hr on admission night. Patient found to have high blood pressure and added p.o. lisinopril 5 mg. Her atrial fibrillation was controlled well and continued her home medications. Her TSH was 5.4, free T4 was 0.6 but the patient refused to take a levothyroxine 25 mcg during hospitalization which need to be addressed and discussed with the PCP. Her atorvastatin downgraded to her original 40 mg dosage on the next day of admission. Her bilateral chronic angle closure glaucoma IOP was controlled with bilateral lansoprazole eyedrops during hospitalization. DVT prophylaxis was achieved with the SCDs until fully ambulatory. All of her questions and concerns were addressed with the best knowledge of our team. Today, all of her labs were review which were within normal limits with a slightly elevated BUN creatinine ratio 20.7 and total protein 5.5 albumin 3.3. All of her vitals were stable at the moment with temp 97.5� F, OK 65/minute, RR 15/minute, BP 100/54 mm Hg, pulse oximetry 96% on room air. Patient was recovering sooner than we expected and discharged to home. On examination, General: Well alert, well oriented, not confused, not agitated, not in acute distress, well cooperated during the physical. HEENT: Conjunctive are pink, sclerae clear, no icterus, pupil is equal in both sides, reactive to light, no ear discharge, no pharyngeal erythema or an edema, mouth and lips are moist. Neck: Supple, no JVD, no lymphadenopathy and thyromegaly. Lungs:Equal air entry on both lungs, no additional sounds Heart: S1-S2 regular sinus rhythm and, regular rate, no gallops, no rubs, no murmurs Abdomen: No visible peristalsis, Bowel sounds present on auscultation, soft, nontender, no guarding, no rigidity Extremities: No obvious deformities, no pitting edema bilaterally, capillary refill intact, able to wiggle toes both sides, peripheral pulsations are intact on both sides, bilateral chronic venous insufficiency/ venous stasis dermatitis and skin lesions. 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 AGENT: No focal neurological deficits, no motor and sensory weakness in all 4 extremities, could move all 4 extremities Musculoskeletal: No joint swelling, deformities, inflammations, and no scoliosis and back tenderness Skin: No active skin lesions and rashes Discharge instructions: -Return to the ER for any emergency situations including progressive unstable and severe central chest pain with radiation, severe hypotension, severe GI upset, and fainting spells etc -Need to follow up with PCP for the further management including periodical checking of INR for the Warfarin taking, regular post discharge blood works, and discussion for the TSH and Free T4 levels with the requirement of Levothyroixine etc -Follow up with the Test Case Developer in [place] for further management including recent Cardiac NM stress test and Chest pain etc -medication compliance -Avoid from taking EtOh and smoking tobacco -Moderate active lifestyle with the strict heart healthy diet would be advised Resident attestation: Patient was seen and examined with attending MD, Dr. Amaris RODARTE MD Internal Medicine Resident, PGY2 [facility] *Problems/Diagnosis: (1) Non-cardiac chest pain Status: Resolved Total Time Spent on D/C: > 30 Minutes Date of Service: November 06, 2024 Billing Provider: DANIEL RODRIGUES MD Common Visit Codes: 91642-EHN/OBS DISCH DAY >30min LANI RODARTE, DEVON November 06, 2024 16:34 DANIEL RODRIGUES MD November 06, 2024 22:03
[2024-11-06] MEDS ORDERED: carVEDilol 3.125mg tablet PO SCH (20:00)
== END 2024-11-06 13:30 | disposition home or self-care (01) | DRG 311 ==
LOC: ER 00:27 → ED HOLD 03:48 → EDBEDREQ 04:48 → PCU 3S 05:10
PROVIDERS: ADMIT Surgery Surgical Critical Care; ATTEND Internal Medicine
PROC: 4A02XM4 Measurement of Cardiac Total Activity, External Approach (ICD-10-PCS; principal; 2024-11-05)
PROC: 3E033HZ Introduction of Radioactive Substance into Peripheral Vein, Percutaneous Approach (ICD-10-PCS; 2024-11-05)
PROC: B32T1ZZ Computerized Tomography (CT Scan) of Left Pulmonary Artery using Low Osmolar Contrast (ICD-10-PCS; 2024-11-05)
PROC: B3201ZZ Computerized Tomography (CT Scan) of Thoracic Aorta using Low Osmolar Contrast (ICD-10-PCS; 2024-11-05)
PROC: B32S1ZZ Computerized Tomography (CT Scan) of Right Pulmonary Artery using Low Osmolar Contrast (ICD-10-PCS; 2024-11-05)
DX: I20.9 Angina pectoris, unspecified (principal); I48.91 Unspecified atrial fibrillation; E78.5 Hyperlipidemia, unspecified; H40.2230 Chronic angle-closure glaucoma, bilateral, stage unspecified; I95.9 Hypotension, unspecified; Z96.652 Presence of left artificial knee joint; Z66 Do not resuscitate; Z88.0 Allergy status to penicillin; Z88.2 Allergy status to sulfonamides; Z79.82 Long term (current) use of aspirin; Z79.01 Long term (current) use of anticoagulants; Z90.710 Acquired absence of both cervix and uterus; Z90.49 Acquired absence of other specified parts of digestive tract
CPT/HCPCS: 36415; 71045; 71275; 78452; 80053; 80061; 81003; 83036; 83735; 83880; 84132; 84439; 84443; 84484; 85025; 85379; 85610; 85730; 87081; 93005; 93017; 93306; 96374; 99285; A9500; G0378; J2785; J7030; J7040; Q9967

== ENCOUNTER 2025-01-20 07:20 | Emergency (ER) | payer MEDICARE ==
[~2025-01-20] VITALS: Ht 157.5 cm; Wt 71.0 kg
[~2025-01-20 07:20] MED LIST changes: -ATEN25TA PO; -ATOR-429 PO; +ATOR40TA PO; -CEPH-585 PO; -MULT-1085 PO; +WARF2.5T82 PO; +XAL0.005OS LEFTEYE; +XAL0.005OS RIGHTEYE; -vitamin D
--- NOTE | 2025-01-20 07:28 | ELECTROCARDIOGRAPH REPORT ---
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 Miquel Villarreal Measurements Intervals [place] Rate: 61 P: 231 OR: 221 QRS: 15 QRSD: 98 T: 63 QT: 424 QTc: 427 Interpretive Statements Sinus or ectopic atrial rhythm Prolonged OR interval Anterior infarct, old Electronically Signed On 01-22-2025 19:15:[address] Miquel Villarreal Please click the below link to view image of tracing.
--- NOTE | 2025-01-20 07:44 | Physician Documentation ---
History of Present Illness ~ Chief Complaint: See Chief Complaint Stated Complaint: LIGHT HEADED Time Seen by MD: 07:27 Primary Medical Doctor: Dr. Nash Source: patient, family HPI 89 yof h/o CAD s/p cardiac PCI x 2( 2018), s/p TAVR 2023, chronic AFib on warfarin, HLD presented with dizziness. Yesterday had a brief episode of chest discomfort which resolved. Today she felt a little light headed and her BP was 140 systolic so her son "panicked" and called 911. She currently feels fine. Medication Reconciliation Allergies: Coded Allergies: Penicillins (Unverified Allergy, Unknown, 10/09/24) Sulfa (Sulfonamide Antibiotics) (Unverified Allergy, Unknown, 10/09/24) aspirin (Unverified Allergy, Unknown, 10/09/24) Scheduled Atorvastatin Calcium* (Lipitor*), 1 TAB PO DAILY, (Reported) Clopidogrel Bisulfate (Plavix), 75 MG PO DAILY, (Reported) Latanoprost (XALATAN ophth drops), 1 DROP LEFTEYE HS, (Reported) Latanoprost (XALATAN ophth drops), 1 DROP RIGHTEYE HS, (Reported) Warfarin Sodium (Warfarin Sodium), 1 TAB PO HS, (Reported) Past Medical History Past Medical History: *CARDIOVASCULAR*, Heart Valve Disease Past Surgical History: heart valve surgery Alcohol Use: None Drug Use: none Lives with: Alone Lives In: Home Occupation: retired Review of Systems All Other Systems at this time: Reviewed and Negative Respiratory: Denies: cough, orthopnea, shortness of breath, SOB with exertion Cardiovascular: Denies: chest pain, diaphoresis, lightheadedness, syncope, palpitations, irregular heart rate Gastrointestinal: Denies: abdominal pain, nausea, vomiting Physical Exam Vital Signs: Temperature: 98.6, Source: Oral, Heart Rate: 62, Respiratory Rate: 16, BP: 163/92, Pulse Oximetry: 97, Weight: 71.000 Oxygen Flow Rate: 0 Physical Exam well appearing no distress awake alert oriented pulm ctab abdomen soft non tender cardiac no murmur neuro cn2-12 intact. normal speech lower ext no edema Progress Results/Orders Reviewed/noted all lab results: Yes Results/Orders Orders - CAMRON COELHO MD Chest,Single View (01/20/25 ) Completed Orders - CAMRON COELHO MD Electrocardiogram (01/20/25 07:26) Cbc/Diff (01/20/25 08:51) BMP (01/20/25 08:51) Troponin (Single) (01/20/25 08:51) Chest,Single View (01/20/25 ) Pt Inr (01/20/25 10:28) Vital Signs 01/20/25 01/20/25 01/20/25 01/20/25 07:25 08:04 09:48 10:54 Temp 98.6 98.6 98.6 Pulse 62 60 60 Resp 16 14 18 12 B/P (MAP) 163/92 130/68 (88) 135/69 (91) Pulse Ox 97 95 97 O2 Flow Rate 0 0 0 Laboratory Tests Test 01/20/25 09:28 White Blood Count 5.4 Red Blood Count 4.54 Hemoglobin 14.4 Hematocrit 42.3 Mean Corpuscular Volume 93.2 Mean Corpuscular Hemoglobin 31.6 H Mean Corpuscular Hemoglobin Concent 33.9 Red Cell Distribution Width 13.1 Platelet Count 117 L Mean Platelet Volume 7.7 Neutrophils (%) (Auto) 59.6 Lymphocytes (%) (Auto) 28.0 Monocytes (%) (Auto) 10.9 Eosinophils (%) (Auto) 1.0 Basophils (%) (Auto) 0.5 Neutrophils # (Auto) 3.2 Lymphocytes # (Auto) 1.5 Monocytes # (Auto) 0.6 Eosinophils # (Auto) 0.1 Basophils # (Auto) 0.0 CBC Comment Prothrombin Time 14.0 H INR International Normalized Ratio 1.4 Coagulation Comments Sodium Level 143 Potassium Level 4.2 Chloride Level 106 Carbon Dioxide Level 29.1 Anion Gap 8 Blood Urea Nitrogen 15 Creatinine 0.82 Estimated GFR/1.73 m2 66 BUN/Creatinine Ratio 18.3 Glucose Level 97 Calcium Level 9.1 Troponin I High Sensitivity 6 Albumin 4.0 Chemistry Comments EKG/XRAY/CT/US/VASC/MRI EKG : Additional Comment EKG independently interpreted by myself time 0716 indication dizzy NSR rate 61 normal axis normal 1st degree heart block. concave st elevation leads II and V5 present on prior 04/28/24. Medical Decision Making Additional info obtained from: old records Findings Patient was admitted to the hospital to rule out ACS in the setting of background history of CAD, ACS s/p cardiac stents S2, HLD, heart score six. Her EKG showed WNL without ST T changes. Serial troponin levels showed 9-9-9. She underwent nuclear medicine cardiac stress test on 11/05/2024 showed Impression: 1. No evidence of ischemia or scar. 2. Overall gated left ventricular systolic function was normal with calculated LVEF of 78 % at stress. 3. No left ventricular dilatation. Her possibility of acute PE was excluded out with CTA chest showing no pulmonary embolism only cardiomegaly. CXR show no acute cardiopulmonary disease. Her 2D echocardiogram on 11/05/2024 showed LVEF 65%, moderate concentric hypertrophy, RVSP 35 mm Hg, moderate MR, TR, OR with normal pericardium and no effusion. Her lipid profile on admission showed TG 56, total cholesterol 108, LDL 48, HDL 49, and TSH 5.45 with 0.6 free T4, HGB A1c on 11/05/2024 showed 6%. She was given p.o. carvedilol 3.125 mg b.i.d., p.o. atorvastatin 80 mg daily, clopidogrel 75 mg daily, p.o. levothyroxine 25 mcg daily with IV 0.9% sodium chloride 50 mL/hr on admission night. Patient found to have high blood pressure and added p.o. lisinopril 5 mg. Her atrial fibrillation was controlled well and continued her home medications. Her TSH was 5.4, free T4 was 0.6 but the patient refused to take a levothyroxine 25 mcg during hospitalization which need to be addressed and discussed with the PCP. Her atorvastatin downgraded to her original 40 mg dosage on the next day of admission. Her bilateral chronic angle closure glaucoma IOP was controlled with bilateral lansoprazole eyedrops during hospitalization. DVT prophylaxis was achieved with the SCDs until fully ambulatory. All of her questions and concerns were addressed with the best knowledge of our team. Today, all of her labs were review which were within normal limits with a slightly elevated BUN creatinine ratio 20.7 and total protein 5.5 albumin 3.3. All of her vitals were stable at the moment with temp 97.5 F, OR 65/minute, RR 15/minute, BP 100/54 mm Hg, pulse oximetry 96% on room air. Patient was recovering sooner than we expected and discharged to home. On examination, Departure Disposition: 01 HOME / SELF CARE / HOMELESS Impression: Primary Impression: Hypertension Additional Impression Text brief episode of dizziness in tavr/ CAD patient. Resolved. benign vitals and exam. EKG unchanged from prior. labs unremarkable. trope wnl. INR therapeutic. Additional Instructions: Your tests today were all very reassuring. You are safe to go home and follow up with your career technical education teacher. Referrals: NO PRIMARY CARE PROVIDER (PCP) Signature Scribe Signature: [email or web address] Attestation: CAMRON Marcelino MD Jan 20, 2025 07:44
--- NOTE | 2025-01-20 09:14 | RADIOLOGY REPORT ---
EXAM: DI CHEST,SINGLE VIEW Indication: chest pain Technique: Single frontal view of the chest was obtained Comparison: DI CHEST,SINGLE VIEW on DOS: 11/05/24, DI CHEST,SINGLE VIEW on DOS: 10/09/24, DI CHEST,SINGLE VIEW on DOS: 04/28/24 FINDINGS: Lines and Tubes: None Lungs: No focal consolidation. Pleura: No effusion. No pneumothorax. Cardiomediastinal contours: Unremarkable. Atherosclerotic vascular calcifications of the thoracic ao rta are noted. Bones: No acute osseous abnormality. IMPRESSION: No acute cardiopulmonary disease.
[2025-01-20 09:41] LABS: MEAN PLATELET VOLUME 7.7 FL (7.4-10.4); RED CELL DISTRIBUTION WIDTH 13.1 % (11.5-14.5)
[2025-01-20 09:57] LABS: CREATININE 0.82 MG/DL (0.40-0.90); TOTAL CARBON DIOXIDE 29.1 MMOL/L (24-32); eCRCL 38 ML/MIN; eGFR 66 ML/MIN
[2025-01-20 10:59] LABS: INR 1.4 INR
[2025-01-20 11:40] VITALS: BP 143/86; PULSE 60; RESP 19; TEMP 98.6; O2SAT 98
== END 2025-01-20 11:45 | disposition home or self-care (01) ==
LOC: ER 07:21
DX: I10 Essential (primary) hypertension (principal); I25.10 Atherosclerotic heart disease of native coronary artery without angina pectoris; I25.2 Old myocardial infarction; I48.91 Unspecified atrial fibrillation; E78.5 Hyperlipidemia, unspecified; Z79.01 Long term (current) use of anticoagulants; Z79.02 Long term (current) use of antithrombotics/antiplatelets; Z79.899 Other long term (current) drug therapy; Z88.0 Allergy status to penicillin; Z88.2 Allergy status to sulfonamides; Z88.6 Allergy status to analgesic agent; Z95.5 Presence of coronary angioplasty implant and graft; Z60.2 Problems related to living alone
CPT/HCPCS: 36415; 71045; 80048; 84484; 85025; 85610; 93005; 99285